=== PATIENT | female | born 1995 | race Caucasian/White ===

== ENCOUNTER 2018-01-06 16:33 | Emergency (ER) | payer OTHER ==
[~2018-01-06] VITALS: Ht 167.6 cm; Wt 60.2 kg
[~2018-01-06 16:33] MED LIST: ZYRTEC
[2018-01-06 17:12] LABS: HEMATOCRIT 36.8 % (36.0-46.0); HEMOGLOBIN 13.2 G/DL (11.9-15.5); MCH 32.4 PG (29.0-34.0); MCHC 35.9 G/DL (30.0-36.0); MCV 90.4 FL (83-99); PLATELET COUNT 255 K/uL (156-360); RBC DIS.WIDTH-CV 11.9 % (11.8-14.6); RBC DIS.WIDTH-SD 39.8 % (39-53); RED BLOOD COUNT 4.07 M/uL (3.80-5.20); WHITE BLOOD COUNT 10.7 K/uL (4.1-10.2)
[2018-01-06 17:31] LABS: CHLORIDE 108 mEq/L (99-109); POTASSIUM 3.9 mEq/L (3.7-5.4); SODIUM 139 mEq/L (136-147)
[2018-01-06 17:33] LABS: GLUCOSE 135 mg/dL (70-99)
[2018-01-06] MEDS ORDERED: VENTOLIN HFA18 GM IH (17:34)
[2018-01-06] MEDS ORDERED: ZITHROMAX Z-PA250 MG PO (17:34)
[2018-01-06 17:37] LABS: CREATININE 0.7 mg/dL (0.6-1.3); GFR ESTIMATE (CALCULATED) > 59 mL/min/
[2018-01-06 17:38] LABS: UREA NITROGEN (BUN) 13 mg/dL (9-23)
[2018-01-06 17:46] LABS: QUANTITATIVE HCG < 4.0 MIU/ML
[2018-01-06 18:48] VITALS: BP 125/70
== END 2018-01-06 18:49 | disposition home or self-care (01) ==
LOC: EME 16:33
PROVIDERS: Nurse Practitioner Family
DX: J18.9 Pneumonia, unspecified organism (principal); F17.200 Nicotine dependence, unspecified, uncomplicated; F12.90 Cannabis use, unspecified, uncomplicated; F41.9 Anxiety disorder, unspecified; F32.9 Major depressive disorder, single episode, unspecified
CPT/HCPCS: 71046; 80048; 84702; 85027; 94640; 99281; 99284